=== PATIENT | female | born 1980 | race Caucasian/White ===

== ENCOUNTER 2016-07-19 19:51 | Emergency (ER) | payer OTHER ==
[2016-07-19 19:58] VITALS: BP 127/82; PULSE 88; TEMP 98; BMI 24.3
--- NOTE | 2016-07-19 21:02 | PDOC ---
History of Present Illness - General History Source: Patient Exam Limitations: No Limitations - History of Present Illness Initial Comments: 07/19/16 21:29 The patient is a 36 year old female with a pertinent PMH of anxiety who presents to the ED today with chest pain today. The patient reports she was in her usual state of health prior to going to bed last night when she suddenly woke up from her sleep after she felt palpitations, lightheadedness and chest tightness. She also reports double vision. Then today she developed chest pain while she was at work. The patient describes substernal chest pain, 6/10 parosymal and sharp in nature. At time of evaluation she states her pain is currently 5/10. Patient reports associated shortness of breath. She denies diaphoresis, shoulder pain, arm pain, nausea and vomiting. She also reports being short of breath. The patient states her symptoms are not consistent with her normal anxiety. She also has complaints of jaw pain secondary to teeth pain that increased today. The patient denies trauma to the region. LMP was 6 days ago. Denies: fever, chills, abdominal pain, and diarrhea. Allergies: NKDA PCP: Dr. Paddy Victoria Hx: Nonsmoker 07/19/16 22:33 <Kaylee Frank - Last Filed: 07/19/16 23:03> - General History Source: Patient <YvetteMariano - Last Filed: 07/19/16 23:39> - General Chief Complaint: Chest Pain Stated Complaint: CHEST PAIN Time Seen by Provider: 07/19/16 21:02 Past History <Kaylee Frank - Last Filed: 07/19/16 23:03> - Past Medical History Asthma: No Cancer: No Cardiac Disorders: No Diabetes: No HTN: No Seizures: No Thyroid Disease: No - Surgical History Abdominal Surgery: Yes ([facility]) Cholecystectomy: Yes - Psycho/Social/Smoking Cessation Hx Anxiety: Yes Suicidal Ideation: No Smoking Status: No Smoking History: Never smoked Number of Cigarettes Smoked Daily: 0 Information on smoking cessation initiated: No Hx Alcohol Use: No Drug/Substance Use Hx: No Hx Substance Use Treatment: No <Mariano Crawford - Last Filed: 07/19/16 23:39> - Past Medical History Allergies/Adverse Reactions: Allergies Allergy/AdvReac Type Severity Reaction Status Date / Time No Known Allergies Allergy Verified 07/19/16 19:53 Home Medications: Ambulatory Orders Zolpidem Tartrate [Ambien] 10 mg PO HS 07/19/16 Review of Systems - Review of Systems Able to Perform ROS?: Yes Comments:: 07/19/16 21:29 CONSTITUTIONAL: Absent: fever, chills, diaphoresis, generalized weakness, malaise, loss of appetite HEENT: +Double vision, jaw pain, teeth pain. Absent: rhinorrhea, nasal congestion, throat pain, throat swelling, difficulty swallowing, mouth swelling,ear pain, eye pain, CARDIOVASCULAR: +Chest pain, palpitations, lightheadedness. Absent: syncope, irregular heart rate, peripheral edema RESPIRATORY: +Shortness of breath Absent: cough, dyspnea with exertion, orthopnea, wheezing, stridor, hemoptysis GASTROINTESTINAL: Absent: abdominal pain, abdominal distension, nausea, vomiting, diarrhea, constipation, melena,hematochezia GENITOURINARY: Absent: dysuria, frequency, urgency, hesitancy, hematuria, flank pain, genital pain MUSCULOSKELETAL: Absent: myalgia, arthralgia, joint swelling SKIN: Absent: rash, itching, pallor NEUROLOGIC: Absent: headache, focal weakness or paresthesias, dizziness, unsteady gait, seizure, mental status changes, bladder or bowel incontinence PSYCHIATRIC: Absent: anxiety, depression, suicidal or homicidal ideation, hallucinations 07/19/16 23:03 <Kaylee Frank - Last Filed: 07/19/16 23:03> *Physical Exam - Vital Signs Last Vital Signs Temp Pulse Resp BP Pulse Ox 98.0 F 88 14 127/82 100 07/19/16 19:55 07/19/16 19:55 07/19/16 19:55 07/19/16 19:55 07/19/16 19:55 - Physical Exam Comments: 07/19/16 21:29 GENERAL: Well developed, well nourished. Awake and alert. No acute distress. HEENT: Normocephalic, atraumatic. PERRLA, EOMI. No conjunctival pallor. Sclera are non- icteric. Moist mucous membranes. Oropharynx is clear. NECK: Supple. Full ROM. No JVD. Carotid pulses 2+ and symmetric, without bruits. No thyromegaly. No lymphadenopathy. CARDIOVASCULAR: Regular rate and rhythm. No murmurs, rubs, or gallops. Distal pulses are 2+ and symmetric. PULMONARY: No evidence of respiratory distress. Lungs clear to auscultation bilaterally. No wheezing, rales or rhonchi. ABDOMINAL: Soft. Non-tender. Non-distended. No rebound or guarding. No organomegaly. Normoactive bowel sounds. MUSCULOSKELETAL Normal range of motion at all joints. No bony deformities or tenderness. No CVA tenderness. EXTREMITIES: No cyanosis. No clubbing. No edema. No calf tenderness. SKIN: Warm and dry. Normal capillary refill. No rashes. No jaundice. NEUROLOGICAL: Alert, awake, appropriate. Cranial nerves 2-12 intact. No deficits to light touch and temperature in face, upper extremities and lower extremities. No motor deficits in the in face, upper extremities and lower extremities. PSYCHIATRIC: Cooperative. Good eye contact. Appropriate mood and affect <Kaylee Frank - Last Filed: 07/19/16 23:03> - Vital Signs Last Vital Signs Temp Pulse Resp BP Pulse Ox 98.0 F 88 14 127/82 100 07/19/16 19:55 07/19/16 19:55 07/19/16 19:55 07/19/16 19:55 07/19/16 19:55 <Mariano Crawford - Last Filed: 07/19/16 23:39> ED Treatment Course - LABORATORY CBC & Chemistry Diagram: 07/19/16 22:00 07/19/16 22:00 <Kaylee Frank - Last Filed: 07/19/16 23:03> - LABORATORY CBC & Chemistry Diagram: 07/19/16 22:00 07/19/16 22:00 <Mariano Crawford - Last Filed: 07/19/16 23:39> Medical Decision Making - Medical Decision Making 07/19/16 23:38 Dr. Crawford: The scribe's documentation has been prepared under my direction and personally reviewed by me in its entirery. I confirm that the note above accurately reflects all work, treatment, procedures, and medical decision making performed by me. <Mariano Crawford - Last Filed: 07/19/16 23:39> *DC/Admit/Observation/Transfer - Attestations Scribe Attestion: 07/19/16 21:30 Documentation prepared by Kaylee Frank, acting as medical clerical assistant for Mariano Crawford MD/DO. <Kaylee Frank - Last Filed: 07/19/16 23:03> - Discharge Dispostion Admit: No <Mariano Crawford - Last Filed: 07/19/16 23:39> Diagnosis at time of Disposition: Chest pain Qualifiers: Chest pain type: unspecified Qualified Code(s): R07.9 - Chest pain, unspecified - Discharge Dispostion Disposition: HOME Condition at time of disposition: Stable - Referrals Referrals: Paddy Bledsoe MD [Primary Care Provider] - Maurice Barros MD [Staff Physician] - - Patient Instructions Printed Discharge Instructions: DI for Chest Pain
[2016-07-19 21:44] LABS: URINE APPEARANCE SLCLOUDY; URINE BILIRUBIN NEGATIVE (NEGATIVE); URINE COLOR LTYELLOW; URINE GLUCOSE (UA) NEGATIVE (NEGATIVE); URINE KETONE NEGATIVE (NEGATIVE); URINE NITRITE NEGATIVE (NEGATIVE); URINE PROTEIN NEGATIVE (NEGATIVE); URINE UROBILINOGEN NEGATIVE E.U./dl (0.2-1.0)
[2016-07-19 21:47] LABS: URINE BLOOD 3+ (NEGATIVE); URINE LEUK ESTERASE 3+ (NEGATIVE)
[2016-07-19 21:56] LABS: URINE BACTERIA RARE /hpf (NONE SEEN); URINE MUCUS RARE; URINE RBC 2 /hpf (0-3); URINE WBC 22 /hpf (3-5)
[2016-07-19 22:11] LABS: BASOPHIL 0.6 % (0-2.0); EOSINOPHIL 2.3 % (0-4.5); MCH 24.6 pg (25.7-33.7); MCHC 31.6 g/dl (32.0-36.0); MEAN CELL VOLUME 77.9 fl (80-96); MEAN PLT VOLUME 8.9 fl (7.5-11.1); NEUTROPHILS 72.1 % (42.8-82.8); PLATELET COUNT 356 K/MM3 (134-434); RDW 17.3 % (11.6-15.6); WHITE BLOOD COUNT 9.2 K/mm3 (4.0-10.0)
[2016-07-19 22:39] LABS: ALBUMIN 4.2 g/dl (3.4-5.0); ANION GAP 8 (8-16); BILIRUBIN,TOTAL 0.4 mg/dL (0.2-1.0); CALCIUM 9.2 mg/dL (8.5-10.1); CO2 28 mmol/L (21-32); CREATININE 0.7 mg/dL (0.55-1.02); GLUCOSE,RANDOM 84 mg/dL (74-106); SGOT/AST 13 U/L (15-37); SGPT/ALT 20 U/L (12-78); TOT PROT 7.8 g/dl (6.4-8.2)
[2016-07-19 22:41] LABS: ALK PHOS 81 U/L (45-117); TROPONIN I < 0.02 ng/ml (0.00-0.05)
--- NOTE | 2016-07-21 10:29 | EKG ---
Test Reason : Blood Pressure : / mmHG Vent. Rate : 069 BPM Atrial Rate : 069 BPM P-R Int : 124 ms QRS Dur : 074 ms QT Int : 402 ms P-R-T Axes : 023 084 082 degrees QTc Int : 430 ms NORMAL SINUS RHYTHM NORMAL ECG NO PREVIOUS ECGS AVAILABLE Confirmed by MARICARMEN WESTON MD ([id number]) on 07/21/2016 10:29:40 AM Referred By: Confirmed By:MARICARMEN WESTON MD
== END 2016-07-20 00:26 | disposition home or self-care (01) ==
LOC: JER 19:51
DX: R07.89 Other chest pain (principal)
CPT/HCPCS: 36415; 80053; 81003; 81015; 82550; 84484; 84703; 85025; 93005; 93010; 99282-25

== ENCOUNTER 2023-07-31 09:35 | Emergency (ER) | payer OTHER ==
[2023-07-31 10:02] VITALS: BP 107/72; PULSE 75; RESP 18; TEMP 98; BMI 24.7
[2023-07-31] MEDS ORDERED: ACETAMINOPHEN 500 MG TABLET (FP) PO ONE (10:18)
[2023-07-31] MEDS ORDERED: ONDANSETRON *ODT* 4 MG TABLET SL ONE (10:29)
[2023-07-31] MEDS ORDERED: ACETAMINOPHEN 500 MG TABLET (FP) ONE (10:48)
[2023-07-31] MEDS ORDERED: ONDANSETRON *ODT* 4 MG TABLET ONE (10:48)
== END 2023-07-31 12:57 | disposition home or self-care (01) ==
LOC: JER 09:35 → JERFT 09:35 → JER 12:57
DX: S00.93XA Contusion of unspecified part of head, initial encounter (principal); R11.0 Nausea; W00.0XXA Fall on same level due to ice and snow, initial encounter
CPT/HCPCS: 70450-TC; 72100-TC-FY; 72125-TC; 84703; 99284-25; Q0162

== ENCOUNTER 2025-01-16 01:31 | Emergency (ER) | payer OTHER ==
[2025-01-16 01:38] VITALS: BP 135/96; PULSE 116; RESP 18; TEMP 98.5; BMI 24.1
[2025-01-16] MEDS: LACTATED RINGERS SOLUTION 1000 ML INFUS.BAG IV ONE (02:33)
[2025-01-16 02:52] LABS: ABSOLUTE IMMATURE GRANULOCYTES 0.11 x10^3/uL (0.0-0.031); BASOPHILS # 0.07 x10^3/uL (0.01-0.08); EOSINOPHIL % 0.5 % (0.7-5.8); EOSINOPHILS # 0.06 x10^3/uL (0.04-0.36); MCHC 32.0 g/dl (32.2-35.5); MEAN CELL VOLUME 92.6 fl (79.4-94.8); MEAN PLT VOLUME 10.3 fl (9.4-12.3); MONOCYTE # 0.87 x10^3/uL (0.24-0.86); MONOCYTE % 7.4 % (4.7-12.5); RDW 12.9 % (12.2-17.1)
[2025-01-16] MEDS ORDERED: DIPHTH,PERTUSS(ACELL),TET 0.5 ML DISP.SYRIN IM ONE (02:56)
[2025-01-16 03:03] LABS: INR 0.92 (0.83-1.09); PROTHROMBIN TIME (PATIENT) 10.0 SEC (9.7-13.0)
[2025-01-16] MEDS: DIPHTH,PERTUSS(ACELL),TET 0.5 ML DISP.SYRIN IM ONE (03:03)
[2025-01-16 03:06] LABS: ACTIVATED PTT 27.6 SECONDS (25.2-36.5)
[2025-01-16 03:14] LABS: CO2 27.0 mmol/L (21-32); GLUCOSE,RANDOM 102.0 mg/dL (74-106)
[2025-01-16 03:16] LABS: CREATININE 0.7 mg/dL (0.55-1.3); SGOT/AST 21.0 U/L (15-37); SGPT/ALT 24.0 U/L (13-61)
[2025-01-16 03:18] LABS: TOT PROT 6.3 g/dl (6.4-8.2)
[2025-01-16 03:20] LABS: ALK PHOS 84.0 U/L (45-117)
[2025-01-16] MEDS: SODIUM CHLORIDE 1,000 ML IV STA (03:37)
== END 2025-01-16 04:05 | disposition short-term general hospital (02) ==
LOC: JER 01:31
PROC: 3E0337Z Introduction of Electrolytic and Water Balance Substance into Peripheral Vein, Percutaneous Approach (ICD-10-PCS; principal; 2025-01-16)
PROC: 3E0234Z Introduction of Serum, Toxoid and Vaccine into Muscle, Percutaneous Approach (ICD-10-PCS; 2025-01-16)
DX: L55.1 Sunburn of second degree (principal); Z23 Encounter for immunization; X32.XXXA Exposure to sunlight, initial encounter
CPT/HCPCS: 36415; 80053; 85025; 85610; 85730; 86850; 86900; 86901; 90471; 90715; 96360; 99285-25